=== PATIENT | female | born 1990 | race Caucasian/White ===

== ENCOUNTER 2021-11-06 18:06 | Emergency (ER) | payer OTHER ==
[~2021-11-06] VITALS: Ht 152.4 cm; Wt 56.7 kg
[2021-11-06 18:43] VITALS: BP 113/70
[2021-11-06] MEDS ORDERED: ONDANSETRON 4 MG ODT PO ONE (19:30)
[2021-11-06] MEDS ORDERED: ACET-8386 PO (19:35)
[2021-11-06] MEDS ORDERED: ONDA8TAB87 PO (19:35)
--- NOTE | 2021-11-06 19:51 | NUR ---
PT AMBULATED TO [facility]
--- NOTE | 2021-11-06 19:55 | NUR ---
Patient discharged with v/s stable. Written and verbal after care instructions given and explained. Patient alert, oriented and verbalized understanding of instructions. Ambulatory with steady gait. All questions addressed prior to discharge. ID band removed. Patient advised to follow up with PMD. Rx of NORCO AND ZOFRAN given. Patient educated on indication of medication including possible reaction and side effects. Opportunity to ask questions provided and answered.
== END 2021-11-06 19:55 | disposition home or self-care (01) ==
LOC: MED 18:06
DX: O26.892 Other specified pregnancy related conditions, second trimester (principal); R51.9 Headache, unspecified; M54.2 Cervicalgia
CPT/HCPCS: 81002; 81025; 99283; Q0162

== ENCOUNTER 2023-03-07 00:03 | Emergency (ER) | payer OTHER ==
[~2023-03-07 00:03] MED LIST: ACET-8905 PO; ONDA8TAB87 PO
--- NOTE | 2023-03-07 00:30 | NUR ---
CALLED TO TRIAGE, NO ANSWER
--- NOTE | 2023-03-07 01:00 | NUR ---
CALLED TO TRIAGE , NO ANSWER
--- NOTE | 2023-03-07 01:11 | NUR ---
CALLED TO TRIAGE, NO ANSWER
== END 2023-03-07 01:12 | disposition left against medical advice (07) ==
LOC: MED 00:03
DX: R09.81 Nasal congestion (principal); Z53.21 Procedure and treatment not carried out due to patient leaving prior to being seen by health care provider